=== PATIENT | female | born 1975 | race Caucasian/White ===

== ENCOUNTER → 2022-05-31 | Day surgery (SDC) | payer OTHER ==
[~2022-05-31] VITALS: Ht 167.6 cm; Wt 61.2 kg
[~2022-05-31] MED LIST: ABILIFY10 MG PO; CLONAZEPAM1 MG PO; CODE1TAB37 PO; DOCUSATE SODIU100 MG PO; IRON1 TAB PO; KETO10TA2 PO; Mylicon 125MG PO; NAPR500T14 PO; SAM-E400 MG PO; ZIPSOR25 MG PO
== END | disposition home or self-care (01) ==
LOC: CIR.AMB 05:01
PROVIDERS: ATTEND Obstetrics & Gynecology
DX: N83.202 Unspecified ovarian cyst, left side (principal); N83.201 Unspecified ovarian cyst, right side; R10.2 Pelvic and perineal pain; N80.122 Deep endometriosis of left ovary; N80.102 Endometriosis of left ovary, unspecified depth; N73.6 Female pelvic peritoneal adhesions (postinfective); N83.8 Other noninflammatory disorders of ovary, fallopian tube and broad ligament; E78.5 Hyperlipidemia, unspecified; Z20.822 Contact with and (suspected) exposure to COVID-19